=== PATIENT | female | born 1995 | race Caucasian/White ===

== ENCOUNTER 2025-10-10 10:26 | Inpatient (IN) | payer BC, SELFPAY ==
[2025-10-10 10:48] VITALS: BMI 40.1
[2025-10-10] MEDS ORDERED: hydrALAZINE 20 MG/ML VIAL SLOW IVP PRN (11:32)
[2025-10-10 11:46] LABS: #Basophils Less than 0.03 10x3/uL (0.0-0.2); #Eosinophils 0.06 10x3/uL (0.0-0.5); #Monocytes 0.50 10x3/uL (0.0-1.1); #Neutrophils 6.73 10x3/uL (1.5-8.4); %Basophils 0.1 % (0.0-2.0); %Eosinophils 0.7 % (0.0-6.0); %Lymphocytes 17.7 % (18.0-47.0); %Monocytes 5.6 % (0.0-10.0); %Neutrophils 75.7 % (40.0-75.0); Hematocrit 38.4 % (34.9-44.5); Hemoglobin 13.2 g/dL (12.0-15.5); Mean Corpuscular Hemoglobin 31.2 pg (27.0-33.0); Mean Corpuscular Volume 90.8 fL (81.6-98.3); Platelet Count 210 10x3/uL (150-450); Red Blood Cell (RBC) Count 4.23 10x6/uL (3.90-5.03); White Blood Cell (WBC) Count 8.89 10x3/uL (3.5-10.5)
[2025-10-10 12:04] LABS: ALT (SGPT) 8 U/L (Less than 34); AST (SGOT) 17 U/L (11-34); Albumin 2.9 g/dL (3.1-4.5); Alkaline Phosphatase 131 U/L (40-110); Anion Gap 11 mmol/L (10-20); BUN (Urea Nitrogen) 13 mg/dL (7.0-18.7); Bilirubin, Total 0.4 mg/dL (0.3-1.2); Calc. Creatinine Clearance 222 mL/min (70-130); Calcium 8.0 mg/dL (7.8-10.44); Carbon Dioxide 19 mmol/L (22-29); Chloride 110 mmol/L (98-107); Globulin 3.0 g/dL (2.4-3.5); Glucose 75 mg/dL (70-105); Potassium 4.2 mmol/L (3.5-5.1); Sodium 136 mmol/L (136-145)
[2025-10-10] MEDS ORDERED: Diphenoxylate HCl/Atropine Tablet PO PRN ×2 (12:35)
[2025-10-10] MEDS ORDERED: Tranexamic Acid 1,000 MG/10 ML VIAL IVP PRN (12:35)
[2025-10-10] MEDS ORDERED: Lidocaine 1% (PF) 30 ML VIAL SC PRN (12:35)
[2025-10-10] MEDS ORDERED: Carboprost 250 MCG/ML AMP IM PRN (12:35)
[2025-10-10] MEDS ORDERED: Oxytocin 30 units/NS 500 ML 500 ML IV SCH (12:45)
[2025-10-11] MEDS ORDERED: Calcium Gluc 4.6 MEQ/10 ML (100 MG/ML) SLOW IVP PRN (10:34)
[2025-10-11] MEDS ORDERED: hydrALAZINE 20 MG/ML VIAL SLOW IVP PRN ×2 (10:34)
[2025-10-11] MEDS: hydrALAZINE 20 MG/ML VIAL SLOW IVP PRN (10:37)
[2025-10-11] MEDS: Magnesium Sulfate 20 gm/500 ml 20 GM/500 ML BAG IVPB SCH (10:52)
[2025-10-11 11:10] LABS: #Basophils Less than 0.03 10x3/uL (0.0-0.2); #Eosinophils 0.04 10x3/uL (0.0-0.5); #Monocytes 0.63 10x3/uL (0.0-1.1); #Neutrophils 10.79 10x3/uL (1.5-8.4); %Basophils 0.2 % (0.0-2.0); %Eosinophils 0.3 % (0.0-6.0); %Lymphocytes 11.5 % (18.0-47.0); %Monocytes 4.8 % (0.0-10.0); %Neutrophils 82.8 % (40.0-75.0); Hematocrit 43.0 % (34.9-44.5); Hemoglobin 14.3 g/dL (12.0-15.5); Mean Corpuscular Hemoglobin 30.8 pg (27.0-33.0); Mean Corpuscular Volume 92.5 fL (81.6-98.3); Platelet Count 192 10x3/uL (150-450); Red Blood Cell (RBC) Count 4.65 10x6/uL (3.90-5.03); White Blood Cell (WBC) Count 13.03 10x3/uL (3.5-10.5)
[2025-10-11 11:25] LABS: ALT (SGPT) 9 U/L (Less than 34); AST (SGOT) 28 U/L (11-34); Albumin 2.9 g/dL (3.1-4.5); Alkaline Phosphatase 130 U/L (40-110); Anion Gap 15 mmol/L (10-20); BUN (Urea Nitrogen) 17 mg/dL (7.0-18.7); Bilirubin, Total 0.4 mg/dL (0.3-1.2); Calc. Creatinine Clearance 198 mL/min (70-130); Calcium 8.4 mg/dL (7.8-10.44); Carbon Dioxide 17 mmol/L (22-29); Chloride 110 mmol/L (98-107); Globulin 3.5 g/dL (2.4-3.5); Glucose 76 mg/dL (70-105); Potassium 4.7 mmol/L (3.5-5.1); Sodium 137 mmol/L (136-145)
[2025-10-11] MEDS: Magnesium Sulfate 20 gm/500 ml 20 GM/500 ML BAG ONE (15:26)
[2025-10-12] MEDS: fentaNYL/Ropivacaine Epidural 100 ML ONE (00:27)
[2025-10-12] MEDS ORDERED: Ondansetron PF 4 MG/2 ML Vial IVP PRN ×4 (00:42→15:54)
[2025-10-12] MEDS ORDERED: diphenhydrAMINE 50 MG/ML VIAL IVP PRN ×2 (00:42→15:54)
[2025-10-12] MEDS ORDERED: Communication Order-Pharmacy FS SCH ×2 (00:45→16:00)
[2025-10-12] MEDS: Acetaminophen 325 MG TAB PO PRN (07:11)
[2025-10-12] MEDS: Calcium Carbonate 500 MG ChewTAB PO SCH (08:01)
[2025-10-12] MEDS: fentaNYL 2 mcg/Ropivacaine 0.2% Epidural 100 ML CADD EPIDURAL SCH (09:02)
[2025-10-12] MEDS: Ondansetron PF 4 MG/2 ML Vial IVP PRN (13:09)
[2025-10-12] MEDS ORDERED: Bicitra 30 ML UDCUP PO PRN (14:04)
[2025-10-12] MEDS ORDERED: Famotidine/PF 20 mg/2ml Vial SLOW IVP PRN (14:04)
[2025-10-12] MEDS ORDERED: Azithromycin 500 MG in Sodium Chloride 0.9% 250 ML 250 ML IVPB SCH (14:15)
[2025-10-12 15:14] LABS: Analyzer IN Cardio CS NICU; Critical Notified By: clumpkins rt
[2025-10-12 15:18] LABS: Analyzer IN Cardio CS NICU; Critical Notified By: clumpkins rt; pH (Cord, venous) 7.381 (7.250-7.350)
[2025-10-12] MEDS ORDERED: Lanolin Ointment 7 GM TUBE TOP PRN (15:44)
[2025-10-12] MEDS ORDERED: hydrALAZINE 20 MG/ML VIAL SLOW IVP PRN (15:44)
[2025-10-12] MEDS ORDERED: Methylergonovine 0.2 MG TAB PO PRN (15:44)
[2025-10-12] MEDS ORDERED: Acetaminophen 325 MG TAB PO PRN (15:44)
[2025-10-12] MEDS ORDERED: Oxytocin 30 units/NS 500 ML 500 ML IV SCH (15:45)
[2025-10-12] MEDS ORDERED: HYDROmorphone 0.5 MG/0.5 ML SYRINGE SLOW IVP PRN (15:54)
[2025-10-12] MEDS ORDERED: Meperidine HCl/PF 25 MG (1 mL) VIAL SLOW IVP PRN (15:54)
[2025-10-12] MEDS: Ketorolac Tromethamine 30 MG (1 mL) VIAL IVP SCH (16:17)
[2025-10-12] MEDS: Azithromycin 500 MG VIAL ONE (16:18)
[2025-10-12] MEDS: CEFAZOLIN 2 GM VIAL ONE (16:18)
[2025-10-12] MEDS: Oxytocin 10 UNITS/ML VIAL ONE (16:18)
[2025-10-12] MEDS: Ferrous Sulfate 325 MG TAB PO SCH (19:36)
[2025-10-12] MEDS: Ketorolac Tromethamine 30 MG (1 mL) VIAL IVP PRN (22:20)
[2025-10-12] MEDS ORDERED: Magnesium Sulfate 20 gm/500 ml 20 GM/500 ML BAG IVPB SCH ×2 (22:56→23:00)
[2025-10-12] MEDS: Famotidine 20 MG TAB PO SCH (23:48)
[2025-10-12] MEDS: Calcium Carbonate 500 MG ChewTAB PO PRN (23:48)
[2025-10-13] MEDS: Furosemide 20 MG (2 mL) VIAL SLOW IVP SCH (01:30)
[2025-10-13 04:06] LABS: Hematocrit 30.6 % (34.9-44.5); Hemoglobin 10.4 g/dL (12.0-15.5); Mean Corpuscular Hemoglobin 31.2 pg (27.0-33.0); Mean Corpuscular Volume 91.9 fL (81.6-98.3); Platelet Count 166 10x3/uL (150-450); Red Blood Cell (RBC) Count 3.33 10x6/uL (3.90-5.03); White Blood Cell (WBC) Count 11.98 10x3/uL (3.5-10.5)
[2025-10-13] MEDS: Famotidine 20 MG TAB PO SCH (10:00)
[2025-10-13] MEDS ORDERED: Lidocaine 2% MPF 10 ML AMP (For Epidural Use) ONE (19:40)
[2025-10-13] MEDS: Enoxaparin 40 MG (0.4 mL) SYRINGE SC SCH (21:31)
[2025-10-13] MEDS: Ibuprofen 800 MG TAB PO SCH (21:31)
[2025-10-14] MEDS: Acetaminophen 325 MG TAB PO PRN (08:52)
[2025-10-14] MEDS: Furosemide 20 MG TAB PO SCH (08:52)
[2025-10-14 11:59] VITALS: BP 123/82; TEMP 98.5
== END 2025-10-14 14:30 | disposition home or self-care (01) | DRG 787 ==
LOC: CSHLD/OP 10:26 → CSHLD 14:48 → CSHPP 10-13 13:58
PROVIDERS: ADMIT Obstetrics & Gynecology; ATTEND Student in an Organized Health Care Education/Training Program
PROC: 10907ZC Drainage of Amniotic Fluid, Therapeutic from Products of Conception, Via Natural or Artificial Opening (ICD-10-PCS; 2025-10-11)
PROC: 10H07YZ Insertion of Other Device into Products of Conception, Via Natural or Artificial Opening (ICD-10-PCS; 2025-10-11)
PROC: 10D00Z1 Extraction of Products of Conception, Low, Open Approach (ICD-10-PCS; principal; 2025-10-12)
DX: O14.14 Severe pre-eclampsia complicating childbirth (principal); D62 Acute posthemorrhagic anemia; Z3A.39 39 weeks gestation of pregnancy; O99.214 Obesity complicating childbirth; O77.0 Labor and delivery complicated by meconium in amniotic fluid; Z37.0 Single live birth; E66.813 Obesity, class 3
CPT/HCPCS: 36415; 51702; 59200; 80053; 82570; 82805; 84156; 85025; 85027; 86850; 86900; 86901; 99285; J0360; J0595; J1650; J1885; J1940; J2274; J2405; J2590; J3010; J3475